=== PATIENT | male | born 1940 | race Caucasian/White ===

== ENCOUNTER 2018-09-02 09:02 | Outpatient (CLI) | payer MEDICARE, OTHER ==
[2018-09-02 09:47] LABS: Anion Gap 16 mmol/L (10-20); BUN (Urea Nitrogen) 16 mg/dL (8.4-25.7); Calc. Creatinine Clearance 0 mL/min (70-130); Carbon Dioxide 24 mmol/L (23-31); Chloride 101 mmol/L (98-107); Estimated GFR-MDRD 49; Glucose 129 mg/dL (83-110); Sodium 137 mmol/L (136-145)
--- NOTE | 2018-09-02 10:22 | RAD ---
THREE VIEWS RIGHT HAND: Comparison: None. History: Right hand pain with redness and swelling for two days. FINDINGS: Three views of the right hand shows no evidence of acute fracture or dislocation. There is degenerati ve change in the first CMC joints. Mild degenerative changes are seen in the greater carpal joint. Mi ld diffuse soft tissue swelling is seen which extends into the dorsal aspect of the hand. IMPRESSION: 1. No evidence of acute osseous abnormality. 2. 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 POS: [facility]
== END 2018-09-02 09:03 | disposition home or self-care (01) ==
LOC: SCSRAD 09:02
PROVIDERS: ATTEND Nurse Practitioner Family
DX: M79.641 Pain in right hand (principal); M19.031 Primary osteoarthritis, right wrist
CPT/HCPCS: 36415; 80048